=== PATIENT | female | born 1950 | race Caucasian/White ===

== ENCOUNTER → 2017-01-06 | Outpatient (CLI) | payer MEDICARE, BC ==
[~2017-01-06] MED LIST: ALBUTEROL0.83 MG/ML IH; ALLEGRA-D 12 HO1 TER PO; ALPRAZOLAM; ALTACE 10MG TAB10 MG PO; ALTACE5 MG PO; APRESOLINE 25MG25 MG PO; AUGMENTIN XR 101 TER PO; BACTRIM DS 8001 TAB PO; BENADRYL25 M2 PO; BETHANECHOL PO; CIPRO 500MG TA500 MG PO; CYMBALTA 60MG60 MG PO; DAZIDOX10 MG PO; DAZIDOX20 MG PO; DIFLUCAN 100MG100 MG PO; DIFLUCAN150 MG PO; DILAUDID 2MG/2 MG/M1 IV; FENTANYL 50MCG TD; FLEXERIL 1010 MG/TAB PO; GLUCOPHAGE XR500 M1 PO; GLUCOPHAGE500 MG/TAB PO; HEPARIN 50500 U/5 ML IV; INVANZ INJ1 G/VIAL IJ; INVANZ INJ1 G/VIAL IV; LEVAQUIN 5500 MG/TA1 PO; LEVAQUIN 750MG750 M1 PO; LINZESS145CAP PO; LIORESAL 1010 MG/TAB PO; LOVENOX 4040 MG/0.4 SQ; MACROBID 1100 MG/CAP PO; MIRALAX PA17 GM/Dose PO; MONUROL3 GM PO; MORP4 IV; NAPROSYN 2250 MG/TAB PO; NEURONTIN100 MG/CAP PO; NEURONTIN600 MG/TAB PO; NORCO 325 MG-101 TAB PO; NORCO 325 MG-7.1 TAB PO; NORCO PO; NS INT FLUSH 1010 ML IV; NUCYNTA ER50 MG PO; NUCYNTA50 MG PO; OMNICEF 300MG300 MG PO; OXY IR5 MG PO; OXYCONTIN 20MG20 MG PO; PERCOCET 325 MG1 TAB PO; PHENERGAN 25 TA25 MG PO; PHENERGAN25 MG RC; PHENERGAN50 M1 PO; PREMARIN 0.60.625 M1 PO; PRILOSEC 20MG20 MG PO; PYRIDIUM 100MG100 MG PO; PYRIDIUM200 M1 PO; RAPAFLO8 MG PO; REGLAN 10MG10 MG/TAB PO; ROBITUSSIN A-C S1 M1 PO; ROXICODONE15 MG PO; RT ADVAIR 128 DISKUS IH; SSD25 GM TP; STOOL SOFTENER100 M2 PO; TERAZOL0.4% VG; TYLENOL 325MG325 MG PO; TYLENOL 500MG500 MG PO; ULTRAM 50MG TAB50 MG PO; URECHOLINE PO; VOLTAREN GEL 1%1 TU TP; WELLBUTRIN SR100 M1 PO; XANAX .25M0.25 MG/TA PO; ZITHROMAX500 M2 PO; ZOFRAN 4MG T4 MG/TAB PO; ZYVOX 600MG600 MG PO; [UNRECOGNIZED DRUG - OTHER] PO; [UNRECOGNIZED DRUG - OTHER] PO; depression med
== END ==
LOC: MC.RAD 10:11
DX: R92.1 Mammographic calcification found on diagnostic imaging of breast (principal)

== ENCOUNTER 2017-01-27 13:40 | Outpatient (CLI) | payer MEDICARE, BC ==
[~2017-01-27] VITALS: Ht 167.6 cm; Wt 90.9 kg
[2017-01-27 14:00] VITALS: BP 132/97; PULSE 85; TEMP 98.2
== END 2017-01-27 16:00 | disposition home or self-care (01) ==
LOC: EUO 13:40
DX: M81.0 Age-related osteoporosis without current pathological fracture (principal)
CPT/HCPCS: J3489

== ENCOUNTER 2018-01-15 19:31 | Inpatient (IN) | payer MEDICARE, BC ==
[~2018-01-15] VITALS: Ht 170.2 cm; Wt 61.4 kg
[~2018-01-15 19:31] MED LIST changes: +AMOXICILLIN 8751 TAB PO; +LINZESS290CAP PO; -NEURONTIN600 MG/TAB PO; -OXYCONTIN 20MG20 MG PO
[2018-01-15 20:01] LABS: HEMATOCRIT 39.7 % (37.0-47.0); HEMOGLOBIN 12.8 g/dl (12.5-16.0); MEAN CELL VOLUME 88 fl (80.0-100.0); MEAN CORPUSCULAR HEMOGLOBIN 28 pg (27.0-31.0); MEAN CORPUSCULAR HGB CONC 32 g/dl (33.0-37.0); MEAN PLATELET VOLUME 9.5 fl (7.4-10.4); PLATELET COUNT 386 K/mm3 (130-400); RED BLOOD COUNT 4.52 M/mm3 (4.10-5.30); REDCELL DISTRIBUTION WIDTH-CV 14.2 % (11.5-14.5)
[2018-01-15 20:15] LABS: ALBUMIN 3.7 gm/dL (3.5-5.0); BILIRUBIN,TOTAL 0.6 mg/dL (0.0-1.0); CALCIUM 8.5 mg/dL (8.4-10.2); CREATININE, serum 1.5 mg/dL (0.52-1.25); POTASSIUM 4.8 mmol/L (3.4-5.0); TOTAL PROTEIN 7.8 gm/dL (6.4-8.2)
[2018-01-15 20:19] LABS: BAND 28 % (0-10); LYMPHOCYTE 3 % (20.0-51.0); NEUTROPHILS 65 % (42.0-75.2); PLATELET ESTIMATE NORMAL (NORMAL)
[2018-01-15 20:26] LABS: C-REACTIVE PROTEIN 20.9 mg/dL (0.0-0.9)
[2018-01-15 20:31] LABS: COLLECTION METHOD CATHETER
[2018-01-15 20:40] LABS: MUCOUS Present /lpf; PH 5 (5-8); SQUAMOUS EPITHELIAL 0-2 /hpf; URINE APPEARANCE Cloudy; URINE BACTERIA Rare /hpf; URINE BILIRUBIN Negative (NEGATIVE); URINE BLOOD Negative (NEGATIVE); URINE COLOR Yellow; URINE GLUCOSE 1+ (NEGATIVE); URINE KETONE Negative (NEGATIVE); URINE LEUKOCYTE ESTERASE 1+ (NEGATIVE); URINE NITRATE Negative (NEGATIVE); URINE PROTEIN(semi-quant) 1+ (NEGATIVE)
[2018-01-15 21:09] LABS: ARTERIAL BLD GAS O2 SATURATION 95.5 % (92-100); ARTERIAL BLD GAS TCO2 CT 29.7; ARTERIAL BLOOD GAS BASE EXCESS 1.7 (-2-2); ARTERIAL BLOOD GAS HCO3 28.1 meq/L (22-26); ARTERIAL BLOOD GAS PCO2 51.6 mmHg (35-45); ARTERIAL BLOOD GAS PO2 84.2 mmHg (80-100); ARTERIAL BLOOD GAS pH 7.35 (7.35-7.45)
[2018-01-16] VITALS (874 sets, daily range): BP systolic 96–134; BP diastolic 53–86; PULSE 84–91; TEMP 97.7–98.9; O2SAT 32–100
[2018-01-16] MEDS ORDERED: ULTRAM 50MG TAB50 MG PO (02:31)
[2018-01-16 06:08] LABS: CALCIUM 6.9 mg/dL (8.4-10.2); CREATININE, serum 1.26 mg/dL (0.52-1.25); POTASSIUM 4.6 mmol/L (3.4-5.0)
[2018-01-17] VITALS (241 sets, daily range): BP systolic 128–150; BP diastolic 64–80; PULSE 83–95; TEMP 97.1–98.8; O2SAT 75–100
[2018-01-17 06:15] LABS: MEAN CELL VOLUME 90 fl (80.0-100.0); MEAN CORPUSCULAR HGB CONC 32 g/dl (33.0-37.0); MEAN PLATELET VOLUME 10.1 fl (7.4-10.4); PLATELET COUNT 303 K/mm3 (130-400); RED BLOOD COUNT 3.57 M/mm3 (4.10-5.30); REDCELL DISTRIBUTION WIDTH-CV 14.3 % (11.5-14.5)
[2018-01-17 06:25] LABS: HEMOGLOBIN 10.1 g/dl (12.5-16.0); MEAN CORPUSCULAR HEMOGLOBIN 28 pg (27.0-31.0)
[2018-01-17 06:27] LABS: CALCIUM 7.3 mg/dL (8.4-10.2); CREATININE, serum 0.74 mg/dL (0.52-1.25); POTASSIUM 4.7 mmol/L (3.4-5.0)
[2018-01-17 07:23] LABS: BAND 20 % (0-10); EOSINOPHIL 1 % (0-4); LYMPHOCYTE 11 % (20.0-51.0); NEUTROPHILS 64 % (42.0-75.2); PLATELET ESTIMATE NORMAL (NORMAL)
[2018-01-17 07:24] LABS: HYPOCHROMIA 2+
[2018-01-18 03:12] VITALS: BP 142/66; PULSE 98; TEMP 98.5
[2018-01-18 07:42] VITALS: BP 150/84; PULSE 92; TEMP 98.6
[2018-01-18 11:43] VITALS: BP 138/76; PULSE 82; TEMP 98.5
[2018-01-18 15:56] VITALS: BP 141/68; PULSE 82; TEMP 98.2
[2018-01-18 21:32] VITALS: BP 152/77; PULSE 85; TEMP 98.4
[2018-01-18 23:45] VITALS: BP 151/70; PULSE 81; TEMP 98.3
[2018-01-19 03:56] VITALS: BP 148/71; PULSE 76; TEMP 98.1
[2018-01-19 08:24] VITALS: BP 153/70; PULSE 77; TEMP 97.5
[2018-01-19 11:47] VITALS: BP 171/74; PULSE 76; TEMP 97.5
[2018-01-19 16:26] VITALS: BP 166/75; PULSE 79; TEMP 97.5
[2018-01-19 20:26] VITALS: BP 160/83; PULSE 79; TEMP 98.4
[2018-01-19 23:57] VITALS: BP 129/61; PULSE 85
[2018-01-20] VITALS (7 sets, daily range): BP systolic 143–181; BP diastolic 69–97; PULSE 66–86; TEMP 97.4–98.5
[2018-01-21 04:26] VITALS: BP 167/82; PULSE 78; TEMP 97.3
[2018-01-21 08:05] VITALS: BP 175/87; PULSE 64; TEMP 97.8
[2018-01-21 09:25] LABS: CALCIUM 8.3 mg/dL (8.4-10.2); CREATININE, serum 0.63 mg/dL (0.52-1.25); MAGNESIUM 1.3 mg/dL (1.6-2.3); POTASSIUM 4.1 mmol/L (3.4-5.0)
[2018-01-21 09:29] LABS: HEMOGLOBIN 11.2 g/dl (12.5-16.0); MEAN CELL VOLUME 89 fl (80.0-100.0); MEAN CORPUSCULAR HEMOGLOBIN 28 pg (27.0-31.0); MEAN CORPUSCULAR HGB CONC 31 g/dl (33.0-37.0); MEAN PLATELET VOLUME 8.7 fl (7.4-10.4); PLATELET COUNT 389 K/mm3 (130-400); RED BLOOD COUNT 4.07 M/mm3 (4.10-5.30); REDCELL DISTRIBUTION WIDTH-CV 14.2 % (11.5-14.5)
[2018-01-21 09:36] LABS: HEMATOCRIT 36.1 % (37.0-47.0)
[2018-01-21 10:07] LABS: BAND 3 % (0-10); EOSINOPHIL 1 % (0-4); LYMPHOCYTE 20 % (20.0-51.0); METAMYELOCYTE 1 % (0-0); NEUTROPHILS 73 % (42.0-75.2)
[2018-01-21 10:09] LABS: PLATELET ESTIMATE NORMAL (NORMAL)
[2018-01-21] MEDS ORDERED: OMNICEF 300MG300 MG PO (11:12)
[2018-01-21] MEDS ORDERED: MAG-OX 400400 MG/TAB PO (11:13)
[2018-01-21 11:38] VITALS: BP 153/89; PULSE 65; TEMP 97.8
[2018-01-21 16:44] VITALS: BP 135/54; PULSE 88; TEMP 97.7
== END 2018-01-21 15:45 | disposition home or self-care (01) | DRG 871 ==
LOC: COL.ER 19:31 → ICU 21:56 → MEDICAL 01-17 06:49
PROVIDERS: Emergency Medicine; Nurse Practitioner Family
DX: A41.9 Sepsis, unspecified organism (principal); J18.9 Pneumonia, unspecified organism; J96.01 Acute respiratory failure with hypoxia; E87.1 Hypo-osmolality and hyponatremia; N17.9 Acute kidney failure, unspecified; K52.9 Noninfective gastroenteritis and colitis, unspecified; E83.42 Hypomagnesemia; K59.00 Constipation, unspecified; E11.9 Type 2 diabetes mellitus without complications; N31.9 Neuromuscular dysfunction of bladder, unspecified; R65.20 Severe sepsis without septic shock
CPT/HCPCS: 99239; C9113; J0456; J0696; J2405; J3475; J7030; J7050

== ENCOUNTER → 2018-01-29 | Outpatient (CLI) | payer MEDICARE, BC ==
[~2018-01-29] MED LIST changes: +MAG-OX 400400 MG/TAB PO
[2018-01-29 15:58] LABS: BASO # 0.1 (0.0-0.2); BASO % 1.3 % (0.0-2.0); EOS # 0.3 (0.0-0.7); EOS % 4.1 % (0-4.0); GRAN % 59.9 % (42.2-75.2); HEMATOCRIT 40.3 % (37.0-47.0); HEMOGLOBIN 12.5 g/dl (12.5-16.0); LYMPH # 2.3 (1.2-3.4); LYMPH % 26.9 % (20.0-51.0); MEAN CELL VOLUME 89 fl (80.0-100.0); MEAN CORPUSCULAR HEMOGLOBIN 28 pg (27.0-31.0); MEAN CORPUSCULAR HGB CONC 31 g/dl (33.0-37.0); MEAN PLATELET VOLUME 9.6 fl (7.4-10.4); MONO # 0.6 (0.1-0.6); MONO % 7.4 % (1.7-9.3); PLATELET COUNT 329 K/mm3 (130-400); RED BLOOD COUNT 4.51 M/mm3 (4.10-5.30); REDCELL DISTRIBUTION WIDTH-CV 15.1 % (11.5-14.5)
[2018-01-29 16:10] LABS: CALCIUM 9.3 mg/dL (8.4-10.2); CREATININE, serum 0.83 mg/dL (0.52-1.25)
== END ==
LOC: COL.RAD 15:26
PROVIDERS: Emergency Medicine
DX: J18.9 Pneumonia, unspecified organism (principal); J32.9 Chronic sinusitis, unspecified; Z87.19 Personal history of other diseases of the digestive system

== ENCOUNTER 2018-02-07 09:30 | Observation (INO) | payer MEDICARE, BC ==
[~2018-02-07] VITALS: Ht 170.2 cm; Wt 99.6 kg
[2018-02-07 10:09] LABS: BASO # 0.1 (0.0-0.2); BASO % 0.7 % (0.0-2.0); EOS # 0.2 (0.0-0.7); EOS % 1.5 % (0-4.0); GRAN # 7.4 (1.4-6.5); GRAN % 76.8 % (42.2-75.2); HEMATOCRIT 40.2 % (37.0-47.0); HEMOGLOBIN 12.9 g/dl (12.5-16.0); LYMPH # 1.2 (1.2-3.4); LYMPH % 12.4 % (20.0-51.0); MEAN CELL VOLUME 87 fl (80.0-100.0); MEAN CORPUSCULAR HEMOGLOBIN 28 pg (27.0-31.0); MEAN CORPUSCULAR HGB CONC 32 g/dl (33.0-37.0); MEAN PLATELET VOLUME 9.2 fl (7.4-10.4); MONO # 0.8 (0.1-0.6); MONO % 8.2 % (1.7-9.3); PLATELET COUNT 242 K/mm3 (130-400); RED BLOOD COUNT 4.61 M/mm3 (4.10-5.30); REDCELL DISTRIBUTION WIDTH-CV 15.3 % (11.5-14.5)
[2018-02-07 10:21] LABS: ALBUMIN 3.9 gm/dL (3.5-5.0); BILIRUBIN,TOTAL 0.6 mg/dL (0.0-1.0); CALCIUM 9.4 mg/dL (8.4-10.2); CREATININE, serum 0.89 mg/dL (0.52-1.25); POTASSIUM 4.8 mmol/L (3.4-5.0); TOTAL PROTEIN 7.8 gm/dL (6.4-8.2)
[2018-02-07 10:25] LABS: C-REACTIVE PROTEIN 0.7 mg/dL (0.0-0.9)
[2018-02-07 12:00] LABS: COLLECTION METHOD CLEAN CATCH
[2018-02-07 12:01] LABS: PH 5 (5-8); SQUAMOUS EPITHELIAL 0-2 /hpf; URINE APPEARANCE Clear; URINE BACTERIA None Seen /hpf; URINE BILIRUBIN Negative (NEGATIVE); URINE BLOOD Negative (NEGATIVE); URINE COLOR Yellow; URINE GLUCOSE Negative (NEGATIVE); URINE KETONE Negative (NEGATIVE); URINE LEUKOCYTE ESTERASE Negative (NEGATIVE); URINE NITRATE Negative (NEGATIVE); URINE PROTEIN(semi-quant) Negative (NEGATIVE); URINE RBC 0-2 /hpf; URINE UROBILINOGEN Negative (NEGATIVE)
[2018-02-07] MEDS ORDERED: ZOFRAN 4MG T4 MG/TAB PO (12:24)
[2018-02-07 13:29] LABS: TROPONIN-I < 0.012 ng/mL (0.000-0.034)
[2018-02-07 14:30] LABS: PROTHROMBIN TIME 11.6 SECONDS (9.7-12.8)
[2018-02-07 15:34] VITALS: BP 115/67; PULSE 93; TEMP 97.8
[2018-02-07 19:46] VITALS: BP 120/74; PULSE 86; TEMP 98.3
[2018-02-07 23:54] VITALS: BP 135/73; PULSE 83; TEMP 98.4
[2018-02-08 04:52] VITALS: BP 129/83; PULSE 78; TEMP 98.4
[2018-02-08 07:31] VITALS: BP 124/67; PULSE 79; TEMP 97.9
[2018-02-08 11:23] VITALS: BP 137/82; PULSE 89; TEMP 97.8
== END 2018-02-08 14:38 | disposition home or self-care (01) ==
LOC: COL.ER 09:30 → SURG 15:07
PROVIDERS: Emergency Medicine
DX: R10.9 Unspecified abdominal pain (principal); K59.00 Constipation, unspecified; R09.02 Hypoxemia; G89.29 Other chronic pain; N31.9 Neuromuscular dysfunction of bladder, unspecified; E11.9 Type 2 diabetes mellitus without complications; Z79.84 Long term (current) use of oral hypoglycemic drugs; Z79.899 Other long term (current) drug therapy; Z99.81 Dependence on supplemental oxygen
CPT/HCPCS: G0378; J1170; J1650; J2405; J7030; Q9967

== ENCOUNTER 2018-10-08 14:40 | Outpatient (CLI) | payer MEDICARE, BC ==
[~2018-10-08] VITALS: Ht 170.2 cm; Wt 105.8 kg
[2018-10-08 15:16] VITALS: BP 148/86; PULSE 81; TEMP 97.3
== END 2018-10-08 16:22 | disposition home or self-care (01) ==
LOC: EUO 14:40
DX: M81.0 Age-related osteoporosis without current pathological fracture (principal)
CPT/HCPCS: J3489

== ENCOUNTER → 2019-05-13 | Outpatient (CLI) | payer MEDICARE, BC | LOC: DIA.ED 10:05 | DX: E11.9 Type 2 diabetes mellitus without complications (principal); E78.5 Hyperlipidemia, unspecified; I10 Essential (primary) hypertension; E66.9 Obesity, unspecified | CPT/HCPCS: G0108 ==

== ENCOUNTER → 2019-06-28 | Outpatient (CLI) | payer MEDICARE, BC | LOC: DIA.ED 06-08 15:18 | DX: E11.9 Type 2 diabetes mellitus without complications (principal); E78.5 Hyperlipidemia, unspecified; I10 Essential (primary) hypertension; E66.9 Obesity, unspecified ==

== ENCOUNTER → 2020-01-18 | Outpatient (CLI) | payer MEDICARE, BC | LOC: DIA.ED 12:45 | DX: E11.9 Type 2 diabetes mellitus without complications (principal); Z79.84 Long term (current) use of oral hypoglycemic drugs; E66.8 Other obesity; E78.5 Hyperlipidemia, unspecified; I10 Essential (primary) hypertension | CPT/HCPCS: G0270 ==

== ENCOUNTER 2021-03-12 13:59 | Emergency (ER) | payer MEDICARE, BC ==
[~2021-03-12] VITALS: Ht 170.2 cm; Wt 104.5 kg
[2021-03-12 14:14] VITALS: TEMP 98.4
[2021-03-12 17:56] VITALS: BP 151/67; PULSE 80
== END 2021-03-12 17:56 | disposition home or self-care (01) ==
LOC: COL.ER 13:59
DX: S20.20XA Contusion of thorax, unspecified, initial encounter (principal); F41.9 Anxiety disorder, unspecified; Z88.5 Allergy status to narcotic agent; Z79.899 Other long term (current) drug therapy; W06.XXXA Fall from bed, initial encounter; Y92.009 Unspecified place in unspecified non-institutional (private) residence as the place of occurrence of the external cause

== ENCOUNTER 2021-07-14 17:35 | Inpatient (IN) | payer MEDICARE, BC ==
[~2021-07-14] VITALS: Ht 170.2 cm; Wt 103.2 kg
[2021-07-14 19:08] LABS: BASO # 0.1 K/mm3 (0.0-0.2); BASO % 0.6 % (0.0-2.0); EOS # 0.1 K/mm3 (0.0-0.7); EOS % 0.8 % (0-4.0); GRAN # 6.5 K/mm3 (1.4-6.5); GRAN % 69.8 % (42.2-75.2); HEMATOCRIT 44.5 % (37.0-47.0); HEMOGLOBIN 14.4 g/dl (12.5-16.0); LYMPH # 2.1 K/mm3 (1.2-3.4); LYMPH % 22.5 % (20.0-51.0); MEAN CELL VOLUME 83 fl (80.0-100.0); MEAN CORPUSCULAR HEMOGLOBIN 27 pg (27.0-31.0); MEAN CORPUSCULAR HGB CONC 32 g/dl (33.0-37.0); MEAN PLATELET VOLUME 10.9 fl (7.4-10.4); MONO # 0.6 K/mm3 (0.1-0.6); PLATELET COUNT 269 K/mm3 (130-400); RED BLOOD COUNT 5.36 M/mm3 (4.10-5.30)
[2021-07-14 19:18] LABS: COLLECTION METHOD CATHETER
[2021-07-14 19:24] LABS: ALANINE AMINOTRANSFERASE 24 U/L (0-55); ALBUMIN 3.7 gm/dL (3.4-4.8); ALKALINE PHOSPHATASE 129 U/L (40-150); ANION GAP 12 mmol/L (7-16); AST,SGOT 16 U/L (5-34); BILIRUBIN,TOTAL 0.4 mg/dL (0.2-1.2); BLOOD UREA NITROGEN 21 mg/dL (10-20); CALCIUM 9.9 mg/dL (8.4-10.2); CARBON DIOXIDE 25 mmol/L (23-31); CHLORIDE 98 mmol/L (98-107); CREATININE, serum 1.59 mg/dL (0.57-1.11); POTASSIUM 4.8 mmol/L (3.5-4.5); SODIUM 135 mmol/L (136-145); TOTAL PROTEIN 6.9 gm/dL (6.2-8.1)
[2021-07-14 19:25] LABS: GLUCOSE 576 mg/dL (70-99)
[2021-07-14 19:27] LABS: BUDDING YEAST Present /hpf; MUCOUS Present /lpf; PH 5 (5-8); URINE APPEARANCE Cloudy; URINE BACTERIA Rare /hpf; URINE BILIRUBIN Negative (NEGATIVE); URINE BLOOD 1+ (NEGATIVE); URINE COLOR Yellow; URINE GLUCOSE 3+ (NEGATIVE); URINE KETONE Negative (NEGATIVE); URINE LEUKOCYTE ESTERASE 2+ (NEGATIVE); URINE NITRATE Negative (NEGATIVE); URINE PROTEIN(semi-quant) 1+ (NEGATIVE); URINE RBC >50 /hpf; URINE UROBILINOGEN Negative (NEGATIVE)
[2021-07-14 19:30] LABS: TROPONIN-I < 0.010 ng/mL (0.00-0.033)
--- NOTE | 2021-07-14 22:26 | NUR ---
Spoke with TONY Fall Hospitalist about current bedside glucose of 398. New orders received to give midnight dose of insulin and recheck at 0400.
--- NOTE | 2021-07-14 22:30 | NUR ---
Arrived to room 310 via wheelchair from ED. Oriented to room and policy. A&Ox4 but very drowsy and appears medicated. Admission assessment complete. VS stable. New orders initiated. INT to left FA flushes without difficulty. Denies questions at this time. Call light in reach/bed alarm on. Will monitor.
[2021-07-14 22:41] VITALS: BP 133/80; PULSE 81; TEMP 97.6
[2021-07-15] VITALS (7 sets, daily range): BP systolic 139–174; BP diastolic 66–84; PULSE 69–86; TEMP 97.4–98.2
--- NOTE | 2021-07-15 | NUR ---
18F godwin cath insterted at this time using sterile technique. Immediate return of 500mls clear yellow urine noted.
--- NOTE | 2021-07-15 04:36 | NUR ---
TONY Fall Hospitalist notified of bedside glucose of 407. New orders received and initiated.
--- NOTE | 2021-07-15 05:54 | NUR ---
Rested well most of shift. Accuchecks q4-received insulin per high dose sliding scale. Denied pain/nausea/shortness of breath. VS remained stable. Was A&Ox4 but very groggy. Denies current needs. Call light in reach. Will monitor.
--- NOTE | 2021-07-15 10:36 | NUR ---
fountain worker met with patient at bedside to discuss discharge plan. Patient reports that she lives at home alone here in [facility]. Patient reports that she is fully independent with her activities of daily living and that she uses a cane and a walker to assist with ambulation. PCP is Dr. Rondon and she utilizes [facility] pharmacy with no difficulties. Patient reports she does have a DPOA-HC established and i verified that the hospital does have a copy of it. Educated the patient that PT/OT has been ordered and they will be in at some point to complete an evaluation and based on their evaluation, she may need to to established with additional therapies. Patient verbalized her understanding of this but states she is needing some pain medication at this moment. Patient's RN notified of the patient's request for pain medication. Discharge plan: Home-pending PT/OT juan
[2021-07-15 13:48] LABS: CALCIUM 9.3 mg/dL (8.4-10.2); CREATININE, serum 1.08 mg/dL (0.57-1.11); POTASSIUM 4.3 mmol/L (3.5-4.5)
--- NOTE | 2021-07-15 14:23 | NUR ---
Initial visit; Patient thanked Enamel Machine Operator for looking in on her and offering God's blessings and to keep her in Enamel Machine Operator's prayers.
--- NOTE | 2021-07-15 18:30 | NUR ---
Patient has had an ok day. This AM patient was slow to respond to questions, and was orientedx2. As the day progressed, patient became fully A&O. PRN pain medications given this shift for back pain. Scheduled medications given. Shift assessment preformed. Das catheter DC'd, balloon intact, ivan care completed. Purewick placed. Top of right foot and ankle noted to be red and warm. No pain or tenderness noted. Patient denies any further pain, discomfort, SOA, or further needs at this time. Call light in reach. Fall precautions in place. Report given to MIKAL Greer.
--- NOTE | 2021-07-15 18:30 | NUR ---
Scheduled medications given. Shift assessment preformed. Patient still having difficulties with forming and expressing words, but is able to communicate. No other deficits noted. MRI and ECHO complete. Patient to have MARIA FERNANDA tomorrow AM. Consent signed and on the chart. Patient denies any pain, discomfort, SOA, or further needsa t
--- NOTE | 2021-07-16 00:30 | NUR ---
PT LAYING IN BED, SOMEWHAT CONFUSED ABOUT WHAT SHE WANTS. PT COMPLAINED OF PUREWICK NOT WORKING. PT TRIED STANDING UP TO USE, PEED ON FLOOR AND BED. ATTEMPTED TO USE SITTING ON EDGE OF BED, STILL DID NOT WORK. THIS RN CALLED TO SEE IF JARRELL CAN BE REINSERTED. GOT ORDER AND PLACED JARRELL. 750 ML OF URINE RETURN. PT STATED THIS FELT MUCH BETTER. PT HAD FRUSTRATION OVER DR NOT UNDERSTANDING HER BLADDER DYSFUNCTION. CALL LIGHT IN PLACE. NO OTHER NEEDS AT THIS TIME.
--- NOTE | 2021-07-16 01:22 | NUR ---
AT APPROX 2200, THIS RN PLACED A JARRELL USING STERILE TECHNIQUE. JARRELL WAS INSERTED WITH EASE, PT TOLERATED PROCEDURE WELL. 10 CC WAS INSTILLED INTO JARRELL BALLOON. JARRELL SECURED WITH DEVICE ON LEFT THIGH. APPROXIMATELY 75O ML OF URINE EMPTIED.
[2021-07-16 04:54] VITALS: BP 158/79; PULSE 76; TEMP 98
--- NOTE | 2021-07-16 06:28 | NUR ---
PT HAD UNEVENTFUL NIGHT. PT SLEPT MAJORITY OF NIGHT. PT STILL COMPLAINS OF LOWER BACK PAIN, BUT STATES THAT IS A CHRONIC PAIN. PT IS MUCH HAPPIER THAT JARRELL IS REPLACED. PT CALL LIGHT IN REACH, NO OTHER NEEDS AT THIS TIME.
[2021-07-16 06:56] LABS: BASO # 0.1 K/mm3 (0.0-0.2); BASO % 0.8 % (0.0-2.0); EOS # 0.2 K/mm3 (0.0-0.7); GRAN # 5.4 K/mm3 (1.4-6.5); GRAN % 62.6 % (42.2-75.2); HEMATOCRIT 41.7 % (37.0-47.0); HEMOGLOBIN 13.6 g/dl (12.5-16.0); LYMPH # 2.4 K/mm3 (1.2-3.4); LYMPH % 28.1 % (20.0-51.0); MEAN CELL VOLUME 82 fl (80.0-100.0); MEAN CORPUSCULAR HEMOGLOBIN 27 pg (27.0-31.0); MEAN CORPUSCULAR HGB CONC 33 g/dl (33.0-37.0); MONO # 0.5 K/mm3 (0.1-0.6); MONO % 6.2 % (1.7-9.3); PLATELET COUNT 262 K/mm3 (130-400); RED BLOOD COUNT 5.06 M/mm3 (4.10-5.30); REDCELL DISTRIBUTION WIDTH-CV 16.3 % (11.5-14.5)
[2021-07-16 07:10] VITALS: BP 161/78; PULSE 74; TEMP 98.4
--- NOTE | 2021-07-16 07:10 | NUR ---
Assessment completed. Pt. up in the bed. Das catheter patent with clear urine . INT site intact to left forearm.No rednes/no edema. Pt. reports lower lumbar back pain 01/07. Primary nurse notified.
[2021-07-16 07:13] LABS: ALBUMIN 3.3 gm/dL (3.4-4.8); CALCIUM 9.6 mg/dL (8.4-10.2); CREATININE, serum 1.1 mg/dL (0.57-1.11); MAGNESIUM 1.8 mg/dL (1.6-2.6); PHOSPHOROUS 4.2 mg/dL (2.3-4.7); POTASSIUM 4.2 mmol/L (3.5-4.5)
--- NOTE | 2021-07-16 09:03 | NUR ---
Shift assessment preformed. Scheduled medication given. PRN roxicodone given for aching back pain rated a 6/10. Cold pack also placed on back per request of the patient. Patient hypertensive, blood pressure medication given. Patient A&O. Das catheter in place. Securment device in use, no kinks in tubing. Student nurse assissting in cares this am. Patient denies any further pain, discomfort, SOA, or needs at this time. Call light in reach.Fall precautions in place.
--- NOTE | 2021-07-16 09:30 | NUR ---
Pt. up ambulatory in [place] with physical therapy, tolerates activity well.
[2021-07-16] MEDS ORDERED: OMNICEF 300MG300 MG PO (09:31)
[2021-07-16] MEDS ORDERED: DIFLUCAN200 MG PO (09:35)
[2021-07-16 11:10] VITALS: BP 147/82; PULSE 74; TEMP 97.9
--- NOTE | 2021-07-16 12:48 | NUR ---
Admissions Dean attended clinical rounds with the team and patient to discharge home today. SW spoke with patient about Home Health services and patient is agreeable to this. SW presented Medicare.gov list of agencies and patient selected [facility]. SWAPNA contacted Latonia at [facility] and faxed referral with orders. Patient states she also has housekeeping services [facility]. Discharge Plan: Home with [facility]
--- NOTE | 2021-07-16 16:35 | NUR ---
Patient deemed fit for discharge. IV DC'd, catheter intact, no signs of phlebitis. Discharge education/instructions given. Patient verbalized an understanding of the teaching. Patient A&O. VSS. Patient denies any pain, discomfort, SOA, or further needs at this time. Patient escorted from building via wheelchair by [facility] Staff. Friends transporting patient home.
== END 2021-07-16 16:35 | disposition home health service (06) | DRG 917 ==
LOC: COL.ER 17:35 → MEDICAL 19:47
PROVIDERS: Internal Medicine; Student in an Organized Health Care Education/Training Program; ADMIT Internal Medicine
DX: T42.4X1A Poisoning by benzodiazepines, accidental (unintentional), initial encounter (principal); G92.9 Unspecified toxic encephalopathy; N17.9 Acute kidney failure, unspecified; N39.0 Urinary tract infection, site not specified; G89.29 Other chronic pain; M54.50 Low back pain, unspecified; E11.65 Type 2 diabetes mellitus with hyperglycemia; Z66 Do not resuscitate; N31.9 Neuromuscular dysfunction of bladder, unspecified; B37.9 Candidiasis, unspecified; I12.9 Hypertensive chronic kidney disease with stage 1 through stage 4 chronic kidney disease, or unspecified chronic kidney disease; N18.9 Chronic kidney disease, unspecified; Z23 Encounter for immunization
CPT/HCPCS: 99223-AI; 99232-AI; 99239; J0696; J1644; J1815; J7030

== ENCOUNTER 2021-07-18 10:55 | Observation (INO) | payer MEDICARE, BC ==
[~2021-07-18] VITALS: Ht 167.6 cm; Wt 101.8 kg
[~2021-07-18 10:55] MED LIST changes: +DIFLUCAN200 MG PO
[2021-07-18 12:27] LABS: ALBUMIN 4.1 gm/dL (3.4-4.8); BILIRUBIN,TOTAL 0.4 mg/dL (0.2-1.2); CALCIUM 10.3 mg/dL (8.4-10.2); CREATININE, serum 1.29 mg/dL (0.57-1.11); POTASSIUM 5.1 mmol/L (3.5-4.5); TOTAL PROTEIN 8.2 gm/dL (6.2-8.1)
[2021-07-18 13:55] LABS: BASO # 0.1 K/mm3 (0.0-0.2); BASO % 1.3 % (0.0-2.0); EOS # 0.1 K/mm3 (0.0-0.7); EOS % 1.1 % (0-4.0); GRAN # 4.7 K/mm3 (1.4-6.5); GRAN % 65.2 % (42.2-75.2); HEMOGLOBIN 13.2 g/dl (12.5-16.0); LYMPH # 1.8 K/mm3 (1.2-3.4); LYMPH % 24.9 % (20.0-51.0); MEAN CELL VOLUME 86 fl (80.0-100.0); MEAN CORPUSCULAR HEMOGLOBIN 27 pg (27.0-31.0); MEAN CORPUSCULAR HGB CONC 31 g/dl (33.0-37.0); MEAN PLATELET VOLUME 10.6 fl (7.4-10.4); MONO # 0.5 K/mm3 (0.1-0.6); MONO % 7.1 % (1.7-9.3); PLATELET COUNT 246 K/mm3 (130-400); RED BLOOD COUNT 4.89 M/mm3 (4.10-5.30); REDCELL DISTRIBUTION WIDTH-CV 16.5 % (11.5-14.5)
[2021-07-18 14:31] LABS: COLLECTION METHOD CATHETER
[2021-07-18 14:37] LABS: MUCOUS Present (NOT PRESENT); PH 5 (5-8); SQUAMOUS EPITHELIAL 0-2 /hpf (0-10); URINE APPEARANCE Clear (CLEAR/HAZY); URINE BACTERIA Rare (NONE SEEN); URINE BILIRUBIN Negative (NEGATIVE); URINE BLOOD Negative (NEGATIVE); URINE COLOR Yellow (YELLOW); URINE GLUCOSE 3+ (NEGATIVE); URINE KETONE Trace (NEGATIVE); URINE LEUKOCYTE ESTERASE Negative (NEGATIVE); URINE NITRATE Negative (NEGATIVE); URINE PROTEIN(semi-quant) 1+ (NEGATIVE); URINE RBC 0-2 /hpf (0-2); URINE UROBILINOGEN Negative (NEGATIVE)
[2021-07-18] MEDS ORDERED: NORCO 325 MG-51 TAB PO ×3 (19:36→19:40)
[2021-07-18] MEDS ORDERED: LYRICA 100MG C100 M1 PO (22:03)
[2021-07-18] MEDS ORDERED: NEURONTIN400 MG/CAP PO ×2 (22:06)
[2021-07-18] MEDS ORDERED: TRULICITY3 MG/0.5 M SQ (22:07)
[2021-07-18] MEDS ORDERED: LINZESS290CAP PO (22:07)
[2021-07-18] MEDS ORDERED: GLUCOPHAGE500 MG/TAB PO ×2 (22:09)
[2021-07-18] MEDS ORDERED: LIPITOR20 MG PO (22:09)
[2021-07-18] MEDS ORDERED: LIDODERM 5% PATC1 EA TP (22:10)
[2021-07-19 04:45] VITALS: BP 136/66; PULSE 70; TEMP 97.8
--- NOTE | 2021-07-19 06:30 | NUR ---
PT ARRIVES TO SURGICAL FLOOR @ 0430 FROM ER. PT IS A&O X3. AMBULATES TO BED FROM ER CART. JARRELL CATHETER DRAINING PALE YELLOW URINE. PT DENIES ANY PAIN. SPEECH IS CLEAR, NO WEAKNESS NOTED. PT IS MODERATE SUICIDE RISK BASED ON SCREENING. PT STATES THAT SHE DOES NOT WISH TO BE NOW BUT DOES SOMETIMES. 15 MINUTE CHECKS INITIATED. PT ORIENTED ON FALL PRECAUTIONS ET CALL LIGHT, VERBALIZES UNDERSTANDING. BED ALARM ON, CALL LIGHT WITHIN REACH.
[2021-07-19 07:41] VITALS: BP 168/79; PULSE 70; TEMP 97.5
[2021-07-19 07:41] LABS: BASO # 0.1 K/mm3 (0.0-0.2); BASO % 1.2 % (0.0-2.0); EOS # 0.2 K/mm3 (0.0-0.7); EOS % 3.2 % (0-4.0); GRAN # 4.1 K/mm3 (1.4-6.5); GRAN % 54.8 % (42.2-75.2); HEMATOCRIT 46.8 % (37.0-47.0); HEMOGLOBIN 14.9 g/dl (12.5-16.0); LYMPH # 2.4 K/mm3 (1.2-3.4); LYMPH % 32.4 % (20.0-51.0); MEAN CELL VOLUME 85 fl (80.0-100.0); MEAN CORPUSCULAR HEMOGLOBIN 27 pg (27.0-31.0); MEAN CORPUSCULAR HGB CONC 32 g/dl (33.0-37.0); MEAN PLATELET VOLUME 11.5 fl (7.4-10.4); MONO # 0.6 K/mm3 (0.1-0.6); PLATELET COUNT 221 K/mm3 (130-400); REDCELL DISTRIBUTION WIDTH-CV 16.9 % (11.5-14.5)
--- NOTE | 2021-07-19 07:55 | NUR ---
Patient to Mri with Everardo. Did speak to hospitalist and completed suicide intervention, patient was asked suicide questions & answered no to all questions. Assessment completed & patient on high fall risk protocol. Roxicodone for pain rating 8/10 to her back that is chronic. Will await her return.
[2021-07-19 08:01] LABS: CALCIUM 10.1 mg/dL (8.4-10.2); CREATININE, serum 1.04 mg/dL (0.57-1.11); POTASSIUM 4.7 mmol/L (3.5-4.5)
--- NOTE | 2021-07-19 10:05 | NUR ---
Patient has returned from radiology. Patient complains of nausea. Spoke to & Lucretia banks. Anne held at this time until patient is seen. Will monitor.
[2021-07-19 12:36] VITALS: BP 149/75; PULSE 73; TEMP 97.6
--- NOTE | 2021-07-19 14:14 | NUR ---
SWAPNA received a phone call from Latonia at [facility]. Latonia reports that they have accepted the patient and were about to start her on services before she was admitted to the hospital. She reports that they can resume services upon discharge. SWAPNA met with the patient to discuss discharge plan. The patient lives alone in [place]. She reports independence with ADLs and has a cane and walker. She confirms that she had just been set up with [facility] and would like to resume services upon discharge. The patient's PCP is Dr. Marline Rondon and she receives her medications from [facility]. She reports no difficulties obtaining her meds. The patient's DPOA-HC is in EMR. It designated her late son, Ant. The alternate is her other son, Alexandr Stevenson (ph#[phone]). Alexandr lives in [place], [place]. The patient plans to return home with [facility] upon discharge. She states that her friend is going to transport her home. The patient is to discharge back home today, 07/19, with home health services for assisted/PT/OT/ST from [facility]. SWAPNA notified and faxed discharge orders to Latonia at [facility]. No additional needs at this time.
--- NOTE | 2021-07-19 15:49 | NUR ---
Latonia, at [facility], contacted SWAPNA. Latonia reports that she reached out to the patient to set up a time to start services. Latonia reports that the patient informed her that she actually has outpatient PT set up at [facility] and she would rather do that than home health. SW met with the patient to address the above. SW informed her of the benefits of home health and how OT and ST are also being recommended. The patient reports that she does not think that she needs ST or OT and she is not interested in an RN coming out to visit her. She reports that she already has outpatient PT set up at [facility] and she wants to resume with therapy there. SWAPNA updated the PA.
--- NOTE | 2021-07-19 16:30 | NUR ---
Patient ready for discharge home, A friend taking her home. Iv DC. Das Dc Patient will continue with her straight cath regiment at home. We reviewed all discharge instructions. Home med list reviewed with changes made. She verbalized understanding. Follow up appt made and reviewed. Patient wheeled out with all belongings. Denies questions or cocnerns.
== END 2021-07-19 16:55 | disposition home or self-care (01) ==
LOC: COL.ER 10:55 → SURG 21:37
PROVIDERS: Family Medicine; Nurse Practitioner Family; Physician Assistant; ADMIT Internal Medicine
DX: R47.89 Other speech disturbances (principal); I12.9 Hypertensive chronic kidney disease with stage 1 through stage 4 chronic kidney disease, or unspecified chronic kidney disease; N17.9 Acute kidney failure, unspecified; N18.9 Chronic kidney disease, unspecified; E78.5 Hyperlipidemia, unspecified; R49.22 Hyponasality; E87.5 Hyperkalemia; E11.22 Type 2 diabetes mellitus with diabetic chronic kidney disease; N31.8 Other neuromuscular dysfunction of bladder; N39.0 Urinary tract infection, site not specified; G89.29 Other chronic pain; Z90.49 Acquired absence of other specified parts of digestive tract; Z90.710 Acquired absence of both cervix and uterus; Z90.89 Acquired absence of other organs; Z79.891 Long term (current) use of opiate analgesic; Z79.899 Other long term (current) drug therapy; Z79.84 Long term (current) use of oral hypoglycemic drugs
CPT/HCPCS: G0378; J1644; J1815; J2405; J7030; Q9967

== ENCOUNTER 2022-01-09 13:24 | Observation (INO) | payer MEDICARE, BC ==
[~2022-01-09] VITALS: Ht 170.2 cm; Wt 109.0 kg
[~2022-01-09 13:24] MED LIST changes: +LIDODERM 5% PATC1 EA TP; +LIPITOR20 MG PO; +LYRICA 100MG C100 M1 PO; +NEURONTIN400 MG/CAP PO; +NORCO 325 MG-51 TAB PO; +TRULICITY3 MG/0.5 M SQ
[2022-01-09 13:48] LABS: BASO # 0.1 K/mm3 (0.0-0.2); BASO % 0.9 % (0.0-2.0); EOS # 0.3 K/mm3 (0.0-0.7); EOS % 2.6 % (0.0-4.0); GRAN # 6.6 K/mm3 (1.4-6.5); GRAN % 64.6 % (42.2-75.2); HEMATOCRIT 38.9 % (37.0-47.0); HEMOGLOBIN 12.1 g/dl (12.5-16.0); LYMPH # 2.5 K/mm3 (1.2-3.4); LYMPH % 24.2 % (20.0-51.0); MEAN CELL VOLUME 85 fl (80.0-100.0); MEAN CORPUSCULAR HEMOGLOBIN 27 pg (27-31); MEAN CORPUSCULAR HGB CONC 31 g/dl (33.0-37.0); MEAN PLATELET VOLUME 10.1 fl (7.4-10.4); MONO # 0.7 K/mm3 (0.1-0.6); MONO % 7.2 % (1.7-9.3); PLATELET COUNT 301 K/mm3 (130-400); RED BLOOD COUNT 4.57 M/mm3 (4.10-5.30)
[2022-01-09 14:06] LABS: ALBUMIN 3.5 gm/dL (3.4-4.8); BILIRUBIN,TOTAL 0.3 mg/dL (0.2-1.2); CALCIUM 8.3 mg/dL (8.4-10.2); CREATININE, serum 1.64 mg/dL (0.57-1.11); TOTAL PROTEIN 6.9 gm/dL (6.2-8.1)
[2022-01-09 14:25] LABS: TROPONIN-I 0.019 ng/mL (0.00-0.033); TSH w REFLEX 2.392 uIU/mL (0.350-4.940)
[2022-01-09 15:19] LABS: COLLECTION METHOD CATHETER
[2022-01-09] MEDS ORDERED: LYRICA 25MG CAP25 MG (15:53)
[2022-01-09 15:55] LABS: MUCOUS Present (NOT PRESENT); PH 5 (5-8); SQUAMOUS EPITHELIAL 0-2 /hpf (0-10); URINE APPEARANCE Clear (CLEAR/HAZY); URINE BACTERIA None Seen /hpf (NONE SEEN); URINE BILIRUBIN Negative (NEGATIVE); URINE BLOOD Negative (NEGATIVE); URINE COLOR Yellow (YELLOW); URINE GLUCOSE Negative (NEGATIVE); URINE KETONE Negative (NEGATIVE); URINE LEUKOCYTE ESTERASE Negative (NEGATIVE); URINE NITRATE Negative (NEGATIVE); URINE PROTEIN(semi-quant) Negative (NEGATIVE); URINE RBC 0-2 /hpf (0-2); URINE UROBILINOGEN Negative (NEGATIVE)
[2022-01-09] MEDS ORDERED: ULTRAM 50MG TAB50 MG PO (16:29)
[2022-01-09] MEDS ORDERED: LYRICA 100MG C100 M1 PO (16:30)
--- NOTE | 2022-01-09 17:15 | NUR ---
PT ADMITTED TO ROOM 345 PER ED. NEW ORDERS RECIEVED. VSS, PT RESTING IN BED.
[2022-01-09 17:18] VITALS: BP 135/71; PULSE 93; TEMP 98.7
[2022-01-09 19:34] VITALS: BP 116/62; PULSE 89; TEMP 99.5
--- NOTE | 2022-01-09 22:21 | NUR ---
Received report from day shift. Patient here for hypoxia, SOB. VSS. 16 F godwin cather insterted. Patient tolerated. Good urine output. Patient denies pain at this time. Assessment performed. PM meds administered. Patient in bed with call light within reach.
[2022-01-09 23:42] VITALS: BP 130/61; PULSE 81; TEMP 98.2
[2022-01-10 03:48] VITALS: BP 145/64; PULSE 83; TEMP 99
[2022-01-10 05:07] LABS: ARTERIAL BLD GAS O2 SATURATION 96.7 % (92-100); ARTERIAL BLD GAS TCO2 CT 31.6; ARTERIAL BLOOD GAS BASE EXCESS 2.6 (-2-2); ARTERIAL BLOOD GAS HCO3 29.8 meq/L (22-26); ARTERIAL BLOOD GAS PCO2 58.8 mmHg (35-45); ARTERIAL BLOOD GAS PO2 89.1 mmHg (80-100); ARTERIAL BLOOD GAS pH 7.32 (7.35-7.45)
[2022-01-10 06:46] LABS: BASO # 0.1 K/mm3 (0.0-0.2); EOS # 0.2 K/mm3 (0.0-0.7); EOS % 2.7 % (0.0-4.0); GRAN # 5.1 K/mm3 (1.4-6.5); GRAN % 61.2 % (42.2-75.2); HEMOGLOBIN 11.2 g/dl (12.5-16.0); LYMPH # 2.2 K/mm3 (1.2-3.4); LYMPH % 26.9 % (20.0-51.0); MEAN CELL VOLUME 85 fl (80.0-100.0); MEAN CORPUSCULAR HEMOGLOBIN 27 pg (27-31); MEAN CORPUSCULAR HGB CONC 31 g/dl (33.0-37.0); MEAN PLATELET VOLUME 10.5 fl (7.4-10.4); MONO # 0.6 K/mm3 (0.1-0.6); MONO % 7.8 % (1.7-9.3); PLATELET COUNT 255 K/mm3 (130-400); REDCELL DISTRIBUTION WIDTH-CV 17.8 % (11.5-14.5)
[2022-01-10 06:50] LABS: HEMATOCRIT 35.8 % (37.0-47.0)
[2022-01-10 07:12] LABS: CREATININE, serum 0.84 mg/dL (0.57-1.11); MAGNESIUM 1.5 mg/dL (1.6-2.6); PHOSPHOROUS 3.4 mg/dL (2.3-4.7); POTASSIUM 5.1 mmol/L (3.5-4.5)
[2022-01-10 08:00] VITALS: BP 148/65; PULSE 87; TEMP 98.6
--- NOTE | 2022-01-10 11:28 | NUR ---
rigging up worker met with patient to complete intake and discuss discharge plan. Patient lives at home alone in [place]. Patient reports to being fully independent with her ADL's and does utilize both a cane and walker to assist with mobility. Patient does not utilize home oxygen however SW notified by RT that the patient will need to go home with 2L. PCP is Dr. Rondon and she utilizes [facility] pharmacy for medications with no cost difficulty. Patient reports that she does have a DPOA-HC established listing her two sons. Spoke with the patient about the need for home oxygen. Patient is ok with being established with [facility]. She states her friend Charo Hale ([phone]) is going to picking her up and will be able to berry picker her oxygen before coming to get her. Patients information and signed order sent to [facility]. Notified them of contact to berry picker. Discharge plan: Home with new oxygen set up
[2022-01-10 12:00] VITALS: BP 133/64; PULSE 79; TEMP 98.5
--- NOTE | 2022-01-10 14:34 | NUR ---
SWAPNA contacted [facility] to see if they were about to get Stanton to slate picker the patients oxygen. Antionette at [facility] states that Ruben had said it would be coming but has since left for the day. She stated that the order had not come through yet. Let her know that the patient will be needing 2L so they could start working on it. This SW notified patients RN. Patients orders emailed to Giselle at [facility].
--- NOTE | 2022-01-10 16:00 | NUR ---
DISCHARGE INSTRUCTIONS PROVIDED TO PT. QUESTIONS SOLICITED AND ANSWERED. PT LEFT UNIT WITH FRIEND AND O2.
--- NOTE | 2022-01-13 10:48 | NUR ---
caisson worker contacted patient to follow up on oxygen and home health. Patient states that she got her oxygen set up and has no additional needs. Followed up with patient on the recommendation of home health. Patient verbalizes that she feels as if she "doesn't need it" and states that she has been doing "fine" at home on her own. Patient declines services. Encouraged the patient that if she felt that this is something she needed in the future to reach out to her PCP. Notified Tangela that i followed up with the patient on HH needs and that she declined services. Asked for PA to cancel home health orders.
== END 2022-01-10 16:02 | disposition home or self-care (01) ==
LOC: COL.ER 13:24 → SURG 15:37
PROVIDERS: Emergency Medicine; Physician Assistant; ADMIT Internal Medicine
DX: R53.1 Weakness (principal); G89.29 Other chronic pain; M54.9 Dorsalgia, unspecified; N17.9 Acute kidney failure, unspecified; E11.22 Type 2 diabetes mellitus with diabetic chronic kidney disease; I12.9 Hypertensive chronic kidney disease with stage 1 through stage 4 chronic kidney disease, or unspecified chronic kidney disease; N18.9 Chronic kidney disease, unspecified; E87.2 Acidosis; Z20.822 Contact with and (suspected) exposure to COVID-19; E78.5 Hyperlipidemia, unspecified; W06.XXXA Fall from bed, initial encounter; Y93.9 Activity, unspecified; E87.5 Hyperkalemia; J96.01 Acute respiratory failure with hypoxia; N31.9 Neuromuscular dysfunction of bladder, unspecified; Z87.440 Personal history of urinary (tract) infections; Z79.891 Long term (current) use of opiate analgesic; Z87.891 Personal history of nicotine dependence; Z79.84 Long term (current) use of oral hypoglycemic drugs; Z79.899 Other long term (current) drug therapy
CPT/HCPCS: 99239; A4314; G0378; J1644; J1815; J3475; J7030; J7120

== ENCOUNTER → 2022-04-07 | Outpatient (CLI) | payer MEDICARE, BC ==
[~2022-04-07] MED LIST changes: +LYRICA 25MG CAP25 MG
[2022-04-07 12:05] LABS: ARTERIAL BLD GAS O2 SATURATION 91.5 % (92-100); ARTERIAL BLD GAS TCO2 CT 30.6; ARTERIAL BLOOD GAS BASE EXCESS 3.4 (-2-2); ARTERIAL BLOOD GAS HCO3 29.1 meq/L (22-26); ARTERIAL BLOOD GAS PO2 57.7 mmHg (80-100); ARTERIAL BLOOD GAS pH 7.39 (7.35-7.45)
== END ==
LOC: COL.PUL 11:08
PROVIDERS: Internal Medicine Pulmonary Disease
DX: R06.02 Shortness of breath (principal)

== ENCOUNTER 2022-06-23 02:34 | Inpatient (IN) | payer MEDICARE, BC ==
[~2022-06-23] VITALS: Ht 167.6 cm; Wt 120.0 kg
[~2022-06-23 02:34] MED LIST changes: +BREO IH; +SALONPAS1 EACH TP
[2022-06-23 03:14] LABS: COLLECTION METHOD CATHETER
[2022-06-23 03:18] LABS: BASO # 0.1 K/mm3 (0.0-0.2); BASO % 1.4 % (0.0-2.0); EOS # 0.4 K/mm3 (0.0-0.7); EOS % 4.9 % (0.0-4.0); GRAN # 4.9 K/mm3 (1.4-6.5); GRAN % 56.6 % (42.2-75.2); HEMOGLOBIN 10.7 g/dl (12.5-16.0); LYMPH # 2.3 K/mm3 (1.2-3.4); LYMPH % 26.9 % (20.0-51.0); MEAN CELL VOLUME 84 fl (80.0-100.0); MEAN CORPUSCULAR HEMOGLOBIN 26 pg (27-31); MEAN CORPUSCULAR HGB CONC 32 g/dl (33.0-37.0); MONO # 0.8 K/mm3 (0.1-0.6); MONO % 9.6 % (1.7-9.3); PLATELET COUNT 320 K/mm3 (130-400); RED BLOOD COUNT 4.05 M/mm3 (4.10-5.30); REDCELL DISTRIBUTION WIDTH-CV 18.6 % (11.5-14.5)
[2022-06-23 03:25] LABS: HEMATOCRIT 33.8 % (37.0-47.0)
[2022-06-23 03:34] LABS: SQUAMOUS EPITHELIAL 0-2 /hpf (0-10); URINE BACTERIA Moderate /hpf (NONE SEEN); URINE RBC 0-2 /hpf (0-2)
[2022-06-23 03:35] LABS: PH 8.5 (5.0-8.5); URINE APPEARANCE Cloudy (CLEAR/HAZY); URINE BLOOD Negative (NEGATIVE); URINE COLOR Yellow (YELLOW); URINE GLUCOSE Negative (NEGATIVE); URINE KETONE Negative (NEGATIVE); URINE NITRATE Negative (NEGATIVE); URINE PROTEIN(semi-quant) Negative (NEGATIVE); URINE UROBILINOGEN 0.2 E.U/dL (0.2-1.0)
[2022-06-23 03:35] LABS: ALBUMIN 3.4 gm/dL (3.4-4.8); BILIRUBIN,TOTAL 0.2 mg/dL (0.2-1.2); CALCIUM 8.7 mg/dL (8.4-10.2); CREATININE, serum 1.45 mg/dL (0.57-1.11); POTASSIUM 4.8 mmol/L (3.5-4.5); TOTAL PROTEIN 6.9 gm/dL (6.2-8.1)
[2022-06-23] MEDS ORDERED: GLUCOPHAGE500 MG/TAB PO ×2 (07:46)
[2022-06-23] MEDS ORDERED: ADALAT CC30 MG PO (07:47)
[2022-06-23] MEDS ORDERED: BREO IH (07:49)
[2022-06-23] MEDS ORDERED: ULTRAM 50MG TAB50 MG PO (07:50)
--- NOTE | 2022-06-23 08:52 | NUR ---
Patient came to the unit by bed, unable to transfer from bed to bed. Weak. Assessment intake completed.
[2022-06-23 09:16] VITALS: BP 121/49; PULSE 83; TEMP 98.1
[2022-06-23 11:42] VITALS: BP 124/58; PULSE 77; TEMP 98.5
--- NOTE | 2022-06-23 12:35 | NUR ---
Initial visit; Patient thanked Associate Pathologist for offering God's blessings though declined Spiritual Care.
--- NOTE | 2022-06-23 15:28 | NUR ---
Escrow Officer met with patient to discuss discharge planning. Patient lives alone in [place] and sees Dr. Rondon for primary care. Patient obtains medications from [facility] pharmacy with no difficulties. Patient uses nighttime oxygen from [place] [facility] and also has a walker at home. Patient reports she is normally independent with ADLS. Patient reports her sons, Aravind and Sincere are her DPOA-HC. SW reviewed PT/OT recommendations with patient along with post acute rehab options. Patient unsure of her preferences at this time but wants referrals sent to [facility] and [facility]. SW contacted Ibrahima at [facility] and faxed referral. SW then contacted [facility] Director, Viridiana to give referral. Discharge Plan: IPR vs SNF
[2022-06-23 15:36] VITALS: BP 109/45; PULSE 75; TEMP 97.6
[2022-06-23 15:43] VITALS: BP 109/45; PULSE 75
--- NOTE | 2022-06-23 18:35 | NUR ---
Patient is resting in bed, denies any pain at this time. States oxycodone works for her. Eating well. Unable to stand up. Report will be given to night RN.
[2022-06-23 20:28] VITALS: BP 103/53; PULSE 74; TEMP 98.4
--- NOTE | 2022-06-23 20:30 | NUR ---
Initial shift assessment done- states pain to lower/mid back 11/07 at this time, Das to DD with yellow urine with some sediment, Tele on, o2 at 4L/nc, denies SOB at this time.
[2022-06-23 23:35] VITALS: BP 130/60; PULSE 74; TEMP 98.7
[2022-06-24 03:40] VITALS: BP 120/59; PULSE 81; TEMP 98
--- NOTE | 2022-06-24 05:51 | NUR ---
Quiet night- o2 sats 93% 3L/nc, VSS , 450cc out of Das this shift.
[2022-06-24 06:21] LABS: BASO # 0.1 K/mm3 (0.0-0.2); BASO % 1.4 % (0.0-2.0); EOS # 0.5 K/mm3 (0.0-0.7); EOS % 6.9 % (0.0-4.0); GRAN # 3.8 K/mm3 (1.4-6.5); GRAN % 52.7 % (42.2-75.2); LYMPH # 2.1 K/mm3 (1.2-3.4); LYMPH % 29.1 % (20.0-51.0); MEAN CELL VOLUME 86 fl (80.0-100.0); MEAN CORPUSCULAR HEMOGLOBIN 26 pg (27-31); MEAN CORPUSCULAR HGB CONC 31 g/dl (33.0-37.0); MEAN PLATELET VOLUME 10.3 fl (7.4-10.4); MONO # 0.7 K/mm3 (0.1-0.6); MONO % 9.5 % (1.7-9.3); PLATELET COUNT 268 K/mm3 (130-400); RED BLOOD COUNT 3.82 M/mm3 (4.10-5.30); REDCELL DISTRIBUTION WIDTH-CV 18.6 % (11.5-14.5)
[2022-06-24 06:27] LABS: CALCIUM 8.7 mg/dL (8.4-10.2); CREATININE, serum 1.08 mg/dL (0.57-1.11); POTASSIUM 4.6 mmol/L (3.5-4.5)
[2022-06-24 06:33] LABS: HEMATOCRIT 32.8 % (37.0-47.0)
[2022-06-24 07:44] VITALS: BP 138/64; PULSE 81; TEMP 97.8
[2022-06-24 11:21] VITALS: BP 146/64; PULSE 76; TEMP 97.9
--- NOTE | 2022-06-24 12:42 | NUR ---
Tamper Operator faxed clinical updates to Ibrahima mcdonald [facility].
[2022-06-24 15:33] VITALS: BP 150/58; PULSE 89; TEMP 97.2
--- NOTE | 2022-06-24 19:58 | NUR ---
PT IN BED RESTING COMFORTABLY. NO DISTRESS NOTED. NO CONCERNS VOICED. HOB ELEVATED. RAILS X 2 UP. PHONE AND CALL LIGHT WITHIN REACH. PT HAS AN IS IN ROOM. PT STATES SOMEONE HAS SPOKEN WITH ABOUT THE USE OF IS. NO FURTHER EDUCATION NEEDED AT THIS TIME, X2 NEBS GIVEN. NAME WRITTEN ON BOARD.
--- NOTE | 2022-06-24 20:30 | NUR ---
Initial shift assessment done, states her pain is 8/10 to back and now it is going down into her legs- upset that the doctor fadi garcia her roxicodone - states she has been on it for 12 years , gave her some ice packs for her back- given Lyrica as ordered at HS- tele on, Das with clear yellow urine, o2 at 2L/nc.
[2022-06-24 20:42] VITALS: BP 149/65; PULSE 90; TEMP 98.1
[2022-06-25] VITALS (7 sets, daily range): BP systolic 139–165; BP diastolic 55–87; PULSE 75–93; TEMP 97.9–98.3
--- NOTE | 2022-06-25 00:30 | NUR ---
Awake- did rest for 1-2 hours, now awake and wanting pain med- states back pain 06/09-- will give Ultram as ordered.
--- NOTE | 2022-06-25 02:00 | NUR ---
Restless. states she is in alot of back pain- now sitting at edge of bed, nauseated- dry heaves,, pt states this happens when she is in so much pain. Called Sara GEORGES - will order Phenergan IV
--- NOTE | 2022-06-25 02:50 | NUR ---
Informed of patient having frequent PVC,c since MN- now has had a 5 beat run, and a 7 beat run-- Sara Notified-she talked with [facility] at this time-- orders for lab work and also one time Roxicodone 5mg ordered at this time-
[2022-06-25 03:32] LABS: CALCIUM 10.2 mg/dL (8.4-10.2); CREATININE, serum 1.05 mg/dL (0.57-1.11); MAGNESIUM 1.6 mg/dL (1.6-2.6); POTASSIUM 4.6 mmol/L (3.5-4.5)
--- NOTE | 2022-06-25 04:15 | NUR ---
Tele called still having runs of the PVC,cam GEORGES up on floor at this time-- also aware that her magnesium is 1.6,,
--- NOTE | 2022-06-25 04:25 | NUR ---
Sara putting in orders for Lopressor IV and Magnesium 2 gm IV-
--- NOTE | 2022-06-25 04:35 | NUR ---
Getting an EKG at this time- pt states she still has back pain 03/09 but the Roxicodone did take the edge off- B/P 152/79
--- NOTE | 2022-06-25 05:56 | NUR ---
Did call Sara GEORGES about pts pain to left hip- pt also was a little confused- but after talking with her she was oriented- states she was almost sleeping thats why-- pt has not really slept all night,, Sara also informed that pt has had 6650cc out of her Das just this shift- did already have electrolytes drawn and NA 138,, Sara ok with putting on Lidacaine patch on left hip now.
--- NOTE | 2022-06-25 13:05 | NUR ---
Ibrahima at [facility] advised they can accept patient. SW faxed clinical updates. SW also met with patient to provide update and she is agreeable to go to [facility].
--- NOTE | 2022-06-25 19:23 | NUR ---
pt resting in bed comfortably at this time. no distress noted. no concerns voiced. no complications with treatments. call light within reach. hob slightly elevated. phone within reach. name written on board.
[2022-06-26] VITALS: BP 137/90; PULSE 78; TEMP 97.7
[2022-06-26 05:32] VITALS: BP 138/76; PULSE 69; TEMP 97.4
[2022-06-26 06:28] LABS: BASO # 0.1 K/mm3 (0.0-0.2); EOS # 0.4 K/mm3 (0.0-0.7); EOS % 5.8 % (0.0-4.0); GRAN # 3.7 K/mm3 (1.4-6.5); GRAN % 54.7 % (42.2-75.2); HEMATOCRIT 39.1 % (37.0-47.0); HEMOGLOBIN 11.8 g/dl (12.5-16.0); LYMPH % 29.9 % (20.0-51.0); MEAN CELL VOLUME 85 fl (80.0-100.0); MEAN CORPUSCULAR HEMOGLOBIN 26 pg (27-31); MEAN CORPUSCULAR HGB CONC 30 g/dl (33.0-37.0); MEAN PLATELET VOLUME 10.2 fl (7.4-10.4); MONO # 0.6 K/mm3 (0.1-0.6); MONO % 8.3 % (1.7-9.3); PLATELET COUNT 324 K/mm3 (130-400); RED BLOOD COUNT 4.61 M/mm3 (4.10-5.30); REDCELL DISTRIBUTION WIDTH-CV 18.4 % (11.5-14.5)
[2022-06-26 06:51] LABS: CALCIUM 9.7 mg/dL (8.4-10.2); CREATININE, serum 1.09 mg/dL (0.57-1.11); POTASSIUM 4.7 mmol/L (3.5-4.5)
[2022-06-26 07:30] VITALS: BP 128/62; PULSE 66; TEMP 97.8
[2022-06-26] MEDS ORDERED: TOPROL XL 25MG25 MG PO (08:36)
[2022-06-26] MEDS ORDERED: CEPHALEXIN250 M1 PO (08:36)
--- NOTE | 2022-06-26 09:55 | NUR ---
PT RESTING IN BED. MORNING MEDICATIONS GIVEN. SHIFT ASSESSMENT COMPLETED. PT REPORTS MODERATE PAIN TO BACK. IV D/C. TELE D/C. CHRYSTAL D/C. PLAN TO COMPLETE DISCHARGE INSTRUCTIONS SOON AND DISCHARGE PT HOME WITH HH. CONTINUING TO MONITOR AT THIS TIME.
--- NOTE | 2022-06-26 10:26 | NUR ---
DISCHARGE INSTRUCTIONS GIVEN. PT ESCORTED DOWN WITH PERSONAL BELONGINGS. ALL QUESTIONS ANSWERED.
--- NOTE | 2022-06-26 10:26 | NUR ---
Campaign Associate attended clinical rounds and now patient plans to return home [facility] services. SWAPNA met with patient and provided Medicare.gov list of agencies. Patient selected [facility]. SW presented and reviewed IM form with patient who verbalized understanding. Patient gave verbal consent as signature as she is in contact isolation. SWAPNA placed form in chart and provided patient a copy. SWAPNA contacted Rafael at [facility] and faxed referral with discharge orders. Rafael advised that have had patient before and can accept. Discharge Plan: Home with [facility]
--- NOTE | 2022-06-26 14:49 | NUR ---
Consultant Rn was notified by RNANDREW that patient left a message on her phone indicating she was now at home and thinks she may need to go to [facility]. SWAPNA contacted Rafael at [facility] and requested a visit scheduled as soon as possible. Rafael isn't sure if there are staff available today but will check. SWAPNA contacted [facility] who advised they may not have a bed available now. SWAPNA then contacted patient who expressed she has been up a couple times now and feels she is doing okay but will call SWAPNA tomorrow with an update. SWAPNA asked patient if she has someone that can stay overnight with her and she stated she thought she was okay now.
== END 2022-06-26 10:27 | disposition home health service (06) | DRG 871 ==
LOC: COL.ER 02:34 → MEDICAL 06:50
PROVIDERS: Nurse Practitioner Family; Personal Emergency Response Attendant; Physician Assistant; ADMIT Internal Medicine
DX: A41.9 Sepsis, unspecified organism (principal); J96.01 Acute respiratory failure with hypoxia; N39.0 Urinary tract infection, site not specified; E87.20 Acidosis, unspecified; N17.9 Acute kidney failure, unspecified; I47.20 Ventricular tachycardia, unspecified; R65.20 Severe sepsis without septic shock; G89.29 Other chronic pain; I10 Essential (primary) hypertension; M54.9 Dorsalgia, unspecified; E11.9 Type 2 diabetes mellitus without complications; Z20.822 Contact with and (suspected) exposure to COVID-19; E78.5 Hyperlipidemia, unspecified; I12.9 Hypertensive chronic kidney disease with stage 1 through stage 4 chronic kidney disease, or unspecified chronic kidney disease; E11.22 Type 2 diabetes mellitus with diabetic chronic kidney disease; N18.9 Chronic kidney disease, unspecified; D64.9 Anemia, unspecified; E87.5 Hyperkalemia; E11.65 Type 2 diabetes mellitus with hyperglycemia; N31.9 Neuromuscular dysfunction of bladder, unspecified; I48.91 Unspecified atrial fibrillation; E83.42 Hypomagnesemia; T40.695A Adverse effect of other narcotics, initial encounter; I49.3 Ventricular premature depolarization; B96.20 Unspecified Escherichia coli [E. coli] as the cause of diseases classified elsewhere; Z88.2 Allergy status to sulfonamides; Z99.81 Dependence on supplemental oxygen; Z88.1 Allergy status to other antibiotic agents; Z88.8 Allergy status to other drugs, medicaments and biological substances; Z79.84 Long term (current) use of oral hypoglycemic drugs; Z91.048 Other nonmedicinal substance allergy status; Y92.89 Other specified places as the place of occurrence of the external cause
CPT/HCPCS: A9284; J0696; J1650; J1815; J2270; J2543; J2550; J3475; J7030; Q9967